=== PATIENT | female | born 1940 | race Caucasian/White ===

== ENCOUNTER 2016-12-25 12:22 | Observation (INO) | payer OTHER ==
[2016-12-25] VITALS (7 sets, daily range): BP systolic 115–138; BP diastolic 60–78; PULSE 78–102; RESP 18–20; TEMP 97.8–98.1; O2SAT 96–99
[~2016-12-25] VITALS: Ht 162.6 cm; Wt 88.0 kg
[~2016-12-25 12:22] MED LIST: ACET325T11 PO; BACT800T5 PO; DIAZ5 PO; FURO20 PO; METF500 PO; NATE120T PO; OMEP20TA39 PO; POTA-267 PO; TEMA15 PO; ZOLO50TA PO
[2016-12-25] MEDS: SODIUM CHLORIDE 0.9% FLUSH 10 ML FLUSH IVF PRN ×2 (12:40→15:51)
--- NOTE | 2016-12-25 12:50 | PD ---
HPI Chief Complaint: General Weakness Time Seen by Provider: 12:45 Travel History International Travel<30 days: No Contact w/Intl Traveler<30days: No Traveled to known affect area: No History of Present Illness HPI 76-year-old female presents to the emergency department for evaluation of generalized weakness. Patient wishes discharged yesterday from [facility]. Apparently, she was admitted on December 14, 2016. The patient has discharge instructions for abdominal pain, questionable pancreatic mass. The patient states she fell before going to [facility], but has not fallen since. She reports chronic shortness of breath. She has chronic lung disease and is on oxygen at home. She reports chronic back pain and her morphine pump is without. She was given a prescription for morphine from [facility], but has not yet filled her prescriptions. The patient denies any fevers since being out at [facility]. The patient denies any chest pain. No abdominal pain. She states she is on a clear liquid diet. According to EMS , when the patient went home via taxi from the other hospital, her was found on the floor and was admitted last night. The patient states she is worried about her and that is why she wanted to come to this hospital. PFSH Past Medical History Arthritis: Yes Asthma: No Autoimmune Disease: No Blood Disorders: No Anxiety: Yes Depression: No Heart Rhythm Problems: No Cancer: Yes (UTERINE 1975) Cardiovascular Problems: Yes High Cholesterol: Yes Chemotherapy: Yes Chest Pain: No Congestive Heart Failure: No COPD: Yes Diabetes: Yes Endocrine: Yes Gastrointestinal Disorders: Yes GERD: Yes Genitourinary: Yes Hypertension: Yes Immune Disorder: No Implanted Vascular Access Dvce: Yes Musculoskeletal: Yes Neurologic: Yes Psychiatric: Yes Reproductive: No Respiratory: Yes Integumentary: Yes (mrsa from back wound) Radiation Therapy: Yes Seizures: Yes (POSSIBLE SEIZURE TWITCHING OF FACE HANDS.) Sleep Apnea: No ?: Not Past Surgical History Abdominal Surgery: Yes (APPENDECTOMY 1973) Appendectomy: Yes (1973) Body Medical Devices: PAIN PUMP RIGHT UPPER ABDOMEN Gynecologic Surgery: Yes (hysterectomy) Hysterectomy: Yes Oral Surgery: Yes (WISDOM TEETH) Other Surgery: Yes Social History Alcohol Use: No Tobacco Use: No Substance Use: No Allergies-Medications (Allergen,Severity, Reaction): Coded Allergies: *MDRO Multi-Drug Resistant Organism (Verified Allergy, Unknown, 12/25/16) MRSA Nonsteroidal Anti-Inflammatory Agts (Verified Allergy, Unknown, BEXTRA AND VIOXX (D/C'D FROM MARKET), 12/25/16) Reported Meds & Prescriptions Reported Meds & Active Scripts Active Reported Valium (Diazepam) 5 Mg Tab 5 Mg PO TID PRN Omeprazole 20 Mg Tab 20 Mg PO DAILY Sertraline (Sertraline HCl) 50 Mg Tab 50 Mg PO DAILY Restoril (Temazepam) 15 Mg Cap 15 Mg PO HS PRN Gabapentin 800 Mg Tab 800 Mg PO TID Glimepiride 2 Mg Tab 2 Mg PO DAILY Take with breakfast or first main meal Vesicare (Solifenacin) 10 Mg Tab 10 Mg PO DAILY Advair Diskus Inh (Fluticasone-Salmeterol Inh) 250-50 Mcg/Blist Aer 1 Puff INH BID Rinse mouth after use. Nystop Topical (Nystatin Topical) 100,000 Unit/Gm Powd 1 Applic TOPICAL BID Review of Systems Except as stated in HPI: all other systems reviewed are Neg Physical Exam Narrative GENERAL: Well-nourished, well-developed female patient, afebrile. SKIN: Focused skin assessment warm/dry. Patient has ecchymosis to bilateral arms from previous IVs. Stage 2 decubitus ulcer. HEAD: Normocephalic. Atraumatic. EYES: No scleral icterus. No injection or drainage. NECK: Supple, trachea midline. No JVD or lymphadenopathy. CARDIOVASCULAR: Regular rate and rhythm without murmurs, gallops, or rubs. RESPIRATORY: Breath sounds equal bilaterally. No accessory muscle use. Lungs sounds are clear to auscultation. GASTROINTESTINAL: Abdomen soft, non-tender, nondistended. No abdominal pain to palpation. MUSCULOSKELETAL: No cyanosis, or edema. Patient reports chronic pain and right lower extremity and has slight weakness due to this. Otherwise, extremity strength is 5/5 and neurovascularly intact. BACK: Nontender without obvious deformity. No CVA tenderness. Data Data Last Documented VS Vital Signs Date Time Temp Pulse Resp B/P Pulse Ox O2 Delivery O2 Flow Rate FiO2 12/25/16 15:43 97.8 97 18 138/78 98 Nasal Cannula 2 Orders Electrocardiogram (12/25/16 12:42) Complete Blood Count With Diff (12/25/16 12:42) Comprehensive Metabolic Panel (12/25/16 12:42) Magnesium (Mg) (12/25/16 12:42) B-Type Natriuretic Peptide (12/25/16 12:42) Ckmb (Isoenzyme) Profile (12/25/16 12:42) Troponin I (12/25/16 12:42) Urinalysis - C+S If Indicated (12/25/16 12:42) Chest, Single Ap (12/25/16 12:42) Ecg Monitoring (12/25/16 12:42) Iv Access Insert/Monitor (12/25/16 12:42) Oximetry (12/25/16 12:42) Sodium Chloride 0.9% Flush (Ns Flush) (12/25/16 12:45) Cath For Specimen (12/25/16 12:42) Lipase (12/25/16 12:51) Urine Culture (12/25/16 12:52) CKMB (12/25/16 12:52) CKMB% (12/25/16 12:52) Sodium Chlorid 0.9% 500 Ml Inj (Ns 500 M (12/25/16 15:00) Ceftriaxone Inj (Rocephin Inj) (12/25/16 15:00) Diet Diabetic (12/25/16 Dinner) Admit Order (Ed Use Only) (12/25/16 15:55) Labs Laboratory Tests Test 12/25/16 12:52 White Blood Count 11.8 TH/MM3 Red Blood Count 5.55 MIL/MM3 Hemoglobin 14.3 GM/DL Hematocrit 44.9 % Mean Corpuscular Volume 80.9 FL Mean Corpuscular Hemoglobin 25.8 PG Mean Corpuscular Hemoglobin 31.9 % Concent Red Cell Distribution Width 18.4 % Platelet Count 261 TH/MM3 Mean Platelet Volume 9.1 FL Neutrophils (%) (Auto) 79.0 % Lymphocytes (%) (Auto) 11.3 % Monocytes (%) (Auto) 8.4 % Eosinophils (%) (Auto) 0.5 % Basophils (%) (Auto) 0.8 % Neutrophils # (Auto) 9.4 TH/MM3 Lymphocytes # (Auto) 1.3 TH/MM3 Monocytes # (Auto) 1.0 TH/MM3 Eosinophils # (Auto) 0.1 TH/MM3 Basophils # (Auto) 0.1 TH/MM3 CBC Comment DIFF FINAL Differential Comment Urine Color DARK-BROWN Urine Turbidity HAZY Urine pH 5.5 Urine Specific [place] 1.029 Urine Protein 30 mg/dL Urine Glucose (UA) NEG mg/dL Urine Ketones NEG mg/dL Urine Occult Blood LARGE Urine Nitrite NEG Urine Bilirubin SMALL Urine Urobilinogen 4.0 MG/DL Urine Leukocyte Esterase MOD Urine RBC /hpf Urine WBC 22 /hpf Urine WBC Clumps FEW Urine Squamous Epithelial 1 /hpf Cells Urine Amorphous Sediment RARE Urine Bacteria RARE /hpf Urine Hyaline Casts 22 /lpf Urine Mucus FEW /lpf Urine Yeast (Budding) FEW Microscopic Urinalysis Comment CATH-CULTURE IND Sodium Level 141 MEQ/L Potassium Level 4.2 MEQ/L Chloride Level 103 MEQ/L Carbon Dioxide Level 25.3 MEQ/L Anion Gap 13 MEQ/L Blood Urea Nitrogen 21 MG/DL Creatinine 1.37 MG/DL Estimat Glomerular Filtration 38 ML/MIN Rate Random Glucose 123 MG/DL Calcium Level 9.8 MG/DL Magnesium Level 1.6 MG/DL Total Bilirubin 1.4 MG/DL Aspartate Amino Transf 43 U/L (AST/SGOT) Alanine Aminotransferase 52 U/L (ALT/SGPT) Alkaline Phosphatase 127 U/L Total Creatine Kinase 105 U/L Creatine Kinase MB 2.2 NG/ML Troponin I LESS THAN 0.02 NG/ML B-Type Natriuretic Peptide 71 PG/ML Total Protein 8.9 GM/DL Albumin 3.6 GM/DL Lipase 111 U/L [facility] Medical Decision Making Medical Screen Exam Complete: Yes Emergency Medical Condition: Yes Medical Record Reviewed: Yes Interpretation(s) chest x-ray - CONCLUSION: Bibasilar streakiness consistent with atelectasis and/or scarring. Clinical correlation is recommended. Differential Diagnosis Electrolyte abnormality versus urinary tract infection versus dehydration Narrative Course 76-year-old female presents to the emergency department for evaluation of generalized weakness. She was discharged from [facility] yesterday. We will attempt to receive these records. EKG, CBC, CMP, CK, troponin, magnesium, BNP, UA are ordered and pending. Chest x-ray is ordered and pending. EKG shows sinus tachycardia, heart rate 101. CBC shows leukocytosis of 11.8. CMP shows BUN 21, creatinine 1.37, glucose 123, bilirubin 1.4, AST 43, alkaline phosphatase 127. CK is 105. Troponin is less than 0.02. Magnesium is 1.6. BNP is 71. Lipase is 111. UA shows large occult blood, 4.0 urobilinogen, moderate leukocyte esterase, 22 WBC, few wbc clumps. Chest x-ray shows Bibasilar streakiness consistent with atelectasis and/or scarring. I reviewed paperwork from previous admission at [facility]. Patient is given normal saline 500 mL bolus and Rocephin 1 g IV. I discussed the case with my attending physician, Dr. Erickson, who also examined the patient. She believes the patient would benefit from placement at rehabilitation or care home facility. The patient agrees with this. Case management is consulted. Case management is attempting to get patient to call discharged comfortable will not know until tomorrow. The patient was brought in under 23 hour observation for UTI. [facility] is paged for admission. Dr. Leavitt accepted patient. Diagnosis Primary Impression: Urinary tract infection Qualified Code: N30.01 - Acute cystitis with hematuria Additional Impression: Generalized weakness Admitting Information Admitting Physician Requests: Observation Amber Rivera December 25, 2016 12:50
[2016-12-25 13:23] LABS: AUTOMATED NEUTROPHIL # 9.4 TH/MM3 (1.8-7.7); BASOPHIL # 0.1 TH/MM3 (0-0.2); BASOPHIL % 0.8 % (0.0-2.0); EOSINOPHIL # 0.1 TH/MM3 (0-0.4); EOSINOPHIL % 0.5 % (0.0-4.0); HEMATOCRIT 44.9 % (35.0-46.0); HEMO FLAGS DIFF FINAL; LYMPH % 11.3 % (9.0-44.0); LYMPHOCYTE # 1.3 TH/MM3 (1.0-4.8); MEAN CELL VOLUME 80.9 FL (80.0-100.0); MEAN CORPUSCULAR HEMOGLOBIN 25.8 PG (27.0-34.0); MEAN CORPUSCULAR HGB CONC 31.9 % (32.0-36.0); MONO % 8.4 % (0.0-8.0); PLATELET COUNT 261 TH/MM3 (150-450); RED BLOOD COUNT 5.55 MIL/MM3 (4.00-5.30); RED CELL DISTRIBUTION WIDTH 18.4 % (11.6-17.2); WHITE BLOOD COUNT 11.8 TH/MM3 (4.0-11.0)
[2016-12-25 13:35] LABS: BACTERIA, URINE RARE /hpf; BLOOD, URINE LARGE (NEG); GLUCOSE,URINE NEG (NEG); HYALINE CAST, URINE 22 /lpf (RARE); KETONE, URINE NEG (NEG); MUCUS URINE FEW /lpf (OCC); NITRITE,URINE NEG (NEG); PH, URINE 5.5 (5.0-8.5); SQUAMOUS EPITHELIAL CELL URINE 1 /hpf (0-5)
[2016-12-25 13:37] LABS: URINE COLOR DARK-BROWN (YELLW/STRAW)
[2016-12-25 13:38] LABS: COMMENT (UR) CATH-CULTURE IND; CULTURE IF INDICATED CATH CULTURE IND
[2016-12-25 13:50] LABS: ANION GAP 13 MEQ/L (5-15); AST (GOT) 43 U/L (15-37); BICARBONATE 25.3 MEQ/L (21.0-32.0); BLOOD UREA NITROGEN 21 MG/DL (7-18); CHLORIDE 103 MEQ/L (98-107); GLOMERULAR FILTRATION RATE 38 ML/MIN (>89); MAGNESIUM 1.6 MG/DL (1.5-2.5); SODIUM (NA) 141 MEQ/L (136-145)
[2016-12-25 13:51] LABS: POTASSIUM 4.2 MEQ/L (3.5-5.1)
[2016-12-25 13:52] LABS: ALKALINE PHOSPHATASE 127 U/L (45-117); ALT (GPT) 52 U/L (10-53); CREATINE KINASE 105 U/L (26-192); TOTAL BILIRUBIN ADULT 1.4 MG/DL (0.2-1.0)
--- NOTE | 2016-12-25 13:53 | RADRPT ---
EXAM DATE/TIME: 12/25/2016 13:04 [place] COMPARISON: CHEST SINGLE AP, March 12, 2016, 11:40. INDICATIONS : Short of breath and cough. Pt. also c/o weakness. MEDICAL HISTORY : Seizures. Hypertension. Diabetes, uterine cancer SURGICAL HISTORY : None. ENCOUNTER: Initial ACUITY: 1 day PAIN SCORE: 0/10 LOCATION: Bilateral chest FINDINGS: Minimal bibasilar streakiness is noted consistent with probable atelectasis ans/or scarring. The hea rt is stable. There is no acute focal alveolar consolidation. No pulmonary edema is noted. CONCLUSION: Bibasilar streakiness consistent with atelectasis and/or scarring. Clinical correlation is recommend ed. Dre Luz MD on December 25, 2016 at 13:45 Board Certified Radiologist. This report was verified electronically.
[2016-12-25 14:05] LABS: CKMB 2.2 NG/ML (0.5-3.6)
[2016-12-25] MEDS ORDERED: NYST10007 TOPICAL (14:15)
[2016-12-25] MEDS ORDERED: ADVA250A INH (14:15)
[2016-12-25] MEDS ORDERED: VESI10TA PO (14:15)
[2016-12-25] MEDS ORDERED: GLIM2TAB PO (14:20)
[2016-12-25] MEDS ORDERED: GABA800T PO (14:20)
[2016-12-25] MEDS ORDERED: SERT-132 PO (14:23)
[2016-12-25] MEDS ORDERED: REST15CA PO (14:23)
[2016-12-25] MEDS ORDERED: DIAZ5 PO (14:23)
[2016-12-25] MEDS ORDERED: OMEP20TA PO (14:23)
[2016-12-25] MEDS ORDERED: cefTRIAXone INJ 1,000 MG in SODIUM CHLORIDE 0.9% INJ 100 ML IV ONE (15:00)
[2016-12-25] MEDS ORDERED: SODIUM CHLORID 0.9% 500 ML INJ 500 ML IV ONE ×2 (15:00→16:15)
--- NOTE | 2016-12-25 15:38 | PD ---
Data Data Last Documented VS Vital Signs Date Time Temp Pulse Resp B/P Pulse Ox O2 Delivery O2 Flow Rate FiO2 12/25/16 14:30 98.0 90 20 115/60 98 Nasal Cannula 2 Orders Electrocardiogram (12/25/16 12:42) Complete Blood Count With Diff (12/25/16 12:42) Comprehensive Metabolic Panel (12/25/16 12:42) Magnesium (Mg) (12/25/16 12:42) B-Type Natriuretic Peptide (12/25/16 12:42) Ckmb (Isoenzyme) Profile (12/25/16 12:42) Troponin I (12/25/16 12:42) Urinalysis - C+S If Indicated (12/25/16 12:42) Chest, Single Ap (12/25/16 12:42) Ecg Monitoring (12/25/16 12:42) Iv Access Insert/Monitor (12/25/16 12:42) Oximetry (12/25/16 12:42) Sodium Chloride 0.9% Flush (Ns Flush) (12/25/16 12:45) Cath For Specimen (12/25/16 12:42) Lipase (12/25/16 12:51) Urine Culture (12/25/16 12:52) CKMB (12/25/16 12:52) CKMB% (12/25/16 12:52) Sodium Chlorid 0.9% 500 Ml Inj (Ns 500 M (12/25/16 15:00) Ceftriaxone Inj (Rocephin Inj) (12/25/16 15:00) Diet Diabetic (12/25/16 Dinner) Labs Laboratory Tests Test 12/25/16 12:52 White Blood Count 11.8 TH/MM3 Red Blood Count 5.55 MIL/MM3 Hemoglobin 14.3 GM/DL Hematocrit 44.9 % Mean Corpuscular Volume 80.9 FL Mean Corpuscular Hemoglobin 25.8 PG Mean Corpuscular Hemoglobin 31.9 % Concent Red Cell Distribution Width 18.4 % Platelet Count 261 TH/MM3 Mean Platelet Volume 9.1 FL Neutrophils (%) (Auto) 79.0 % Lymphocytes (%) (Auto) 11.3 % Monocytes (%) (Auto) 8.4 % Eosinophils (%) (Auto) 0.5 % Basophils (%) (Auto) 0.8 % Neutrophils # (Auto) 9.4 TH/MM3 Lymphocytes # (Auto) 1.3 TH/MM3 Monocytes # (Auto) 1.0 TH/MM3 Eosinophils # (Auto) 0.1 TH/MM3 Basophils # (Auto) 0.1 TH/MM3 CBC Comment DIFF FINAL Differential Comment Urine Color DARK-BROWN Urine Turbidity HAZY Urine pH 5.5 Urine Specific [place] 1.029 Urine Protein 30 mg/dL Urine Glucose (UA) NEG mg/dL Urine Ketones NEG mg/dL Urine Occult Blood LARGE Urine Nitrite NEG Urine Bilirubin SMALL Urine Urobilinogen 4.0 MG/DL Urine Leukocyte Esterase MOD Urine RBC /hpf Urine WBC 22 /hpf Urine WBC Clumps FEW Urine Squamous Epithelial 1 /hpf Cells Urine Amorphous Sediment RARE Urine Bacteria RARE /hpf Urine Hyaline Casts 22 /lpf Urine Mucus FEW /lpf Urine Yeast (Budding) FEW Microscopic Urinalysis Comment CATH-CULTURE IND Sodium Level 141 MEQ/L Potassium Level 4.2 MEQ/L Chloride Level 103 MEQ/L Carbon Dioxide Level 25.3 MEQ/L Anion Gap 13 MEQ/L Blood Urea Nitrogen 21 MG/DL Creatinine 1.37 MG/DL Estimat Glomerular Filtration 38 ML/MIN Rate Random Glucose 123 MG/DL Calcium Level 9.8 MG/DL Magnesium Level 1.6 MG/DL Total Bilirubin 1.4 MG/DL Aspartate Amino Transf 43 U/L (AST/SGOT) Alanine Aminotransferase 52 U/L (ALT/SGPT) Alkaline Phosphatase 127 U/L Total Creatine Kinase 105 U/L Creatine Kinase MB 2.2 NG/ML Troponin I LESS THAN 0.02 NG/ML B-Type Natriuretic Peptide 71 PG/ML Total Protein 8.9 GM/DL Albumin 3.6 GM/DL Lipase 111 U/L MDM Supervised Visit with CARLOS: Yes Narrative Course The history, exam, and medical decision-making in the associated midlevel provider note were completed with my assistance. I reviewed and agree with the findings presented. I attest that I had a [id number] encounter with the patient on the same day, and personally performed and documented my assessment and findings in the medical record. *My assessment and Findings: This is a 76-year-old female who presents to the emergency department with generalized weakness. She was just discharged from [facility] yesterday after a two-week stay having been treated for pneumonia, worked up for a possible pancreatic mass, and had her morphine pump refilled. She went home and found her on the floor who was subsequently hospitalized for sepsis. She says she is living alone, is unsteady on her feet, and hasn't been feeling well since she returned home. She says she was being evaluated to be placed in a rehabilitation center upon discharge from [facility] but doesn't know what happened. Labs demonstrate a mild leukocytosis and a urinary tract infection. Patient will be placed on antibiotics and admitted for placement. I don't think she can safely be discharged home. In addition to her urinary tract infection she has a sacral decubitus ulcer indicating that she is likely not very mobile and she appears quite debilitated. Diagnosis Primary Impression: Urinary tract infection Qualified Code: N30.01 - Acute cystitis with hematuria Additional Impression: Generalized weakness Jacqui Erickson MD December 25, 2016 15:38
[2016-12-25] MEDS ORDERED: TEMAZEPAM 15 MG CAP PO PRN (16:15)
[2016-12-25] MEDS ORDERED: DEXTROSE 50% IN WATER 50 ML VIAL(D50) IV PUSH PRN (16:15)
[2016-12-25] MEDS ORDERED: GLUCAGON 1 MG/ML VIAL OTHER PRN (16:15)
[2016-12-25] MEDS ORDERED: RESP: ALBUTEROL 1.25 MG/3 ML NEB (PRN) NEB (16:15)
--- NOTE | 2016-12-25 16:22 | HHI.HP ---
[facility] Service [facility] Primary Care Physician Sony Serrano MD Admission Diagnosis UTI, generalized weakness Diagnoses: (1) Urinary tract infection Diagnosis: Principal (2) Generalized weakness Diagnosis: Principal Chief Complaint: generalized weakness Travel History International Travel<30 Days: No Contact w/Intl Traveler <30 Da: No Traveled to Known Affected Are: No History of Present Illness patient is a 76 y/o female who was just recently discharged from the hospital after she was admitted with pneumonia presented back to ER with generalized weakness. she says that she normally walks with a walker and apparently she had a fall recently. she was admitted to [facility] and was treated for pneumonia. 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 she says that when she went home yesterday she felt very weak and was afraid of falling again which made her to come to the ER again. she denies any fever, chills,cough, sob or urinary complaints. she says that when she went home she found her on the floor and now her is hospitalized as well. Review of Systems Constitutional: COMPLAINS OF: Fatigue, DENIES: Fever, Weight loss, Chills, Night Sweats Eyes: DENIES: Blurred vision, Diplopia, Vision loss, Double Vision Ears, nose, mouth, throat: DENIES: Tinnitus, Vertigo, Throat pain, Epistaxis Respiratory: DENIES: Apneas, Cough, Snoring, Wheezing, Hemoptysis, Sputum production, Shortness of breath Cardiovascular: DENIES: Chest pain, Palpitations, Syncope, Dyspnea on Exertion , PND, Lower Extremity Edema, Orthopnea, Claudication Gastrointestinal: DENIES: Abdominal pain, Black stools, Bloody stools, Constipation, Diarrhea, Nausea, Vomiting, Difficulty Swallowing, Anorexia Genitourinary: DENIES: Urinary frequency, Urgency, Hematuria, Dysuria Musculoskeletal: DENIES: Joint pain, Muscle aches, Stiffness, Joint Swelling Integumentary: DENIES: Rash Neurologic: DENIES: Abnormal gait, Headache, Localized weakness, Paresthesias, Seizures, Speech Problems, Tremor, Poor Balance Psychiatric: DENIES: Anxiety, Confusion, Mood changes, Depression, Hallucinations, Agitation, Suicidal Ideation, Homicidal Ideation, Delusions Past Family Social History Past Medical History COPD chronic low back pain uterine and breast cancer Past Surgical History back surgery appendectomy pain pump insertion hysterectomy Reported Medications Valium (Diazepam) 5 Mg Tab 5 Mg PO TID PRN Omeprazole 20 Mg Tab 20 Mg PO DAILY Sertraline (Sertraline HCl) 50 Mg Tab 50 Mg PO DAILY Restoril (Temazepam) 15 Mg Cap 15 Mg PO HS PRN Gabapentin 800 Mg Tab 800 Mg PO TID Glimepiride 2 Mg Tab 2 Mg PO DAILY Take with breakfast or first main meal Vesicare (Solifenacin) 10 Mg Tab 10 Mg PO DAILY Advair Diskus Inh (Fluticasone-Salmeterol Inh) 250-50 Mcg/Blist Aer 1 Puff INH BID Rinse mouth after use. Nystop Topical (Nystatin Topical) 100,000 Unit/Gm Powd 1 Applic TOPICAL BID Allergies: Coded Allergies: *MDRO Multi-Drug Resistant Organism (Verified Allergy, Unknown, 12/25/16) MRSA Nonsteroidal Anti-Inflammatory Agts (Verified Allergy, Unknown, BEXTRA AND VIOXX (D/C'D FROM MARKET), 12/25/16) Active Ordered Medications Current Medications Sodium Chloride 2 ml 2 ml UNSCH PRN IVF FLUSH AFTER USING IV ACCESS Last administered on 12/25/16 15:51; Start 12/25/16 at 12:45 Sodium Chloride 500 ml @ 500 mls/hr BOLUS ONCE IV Last administered on 14:58; Start 12/25/16 at 15:00; Stop 12/25/16 at 15:59; Status DC Ceftriaxone Sodium/Sodium Chloride (Rocephin Inj/NS Inj) 100 ml @ 200 mls/hr ONCE ONCE IV Last administered on 12/25/16 14:58; Start 12/25/16 at 15:00; Stop 12/25/16 at 15:29; Status DC Family History not relevant to this admission. Social History quit smoking long time ago. Physical Exam Vital Signs Vital Signs Date Time Temp Pulse Resp B/P Pulse Ox O2 Delivery O2 Flow Rate FiO2 12/25/16 15:43 97.8 97 18 138/78 98 Nasal Cannula 2 12/25/16 14:30 98.0 90 20 115/60 98 Nasal Cannula 2 12/25/16 12:45 20 98 Nasal Cannula 2 12/25/16 12:40 101 20 98 Nasal Cannula 2 12/25/16 12:29 98.1 102 20 118/78 99 Physical Exam GENERAL: This is a well-nourished, well-developed patient, in no apparent distress. SKIN: No rashes, ecchymoses or lesions. Cool and dry. HEAD: Atraumatic. Normocephalic. No temporal or scalp tenderness. EYES: Pupils equal round and reactive. Extraocular motions intact. No scleral icterus. No injection or drainage. ENT: Nose without bleeding, purulent drainage or septal hematoma. Throat without erythema, tonsillar hypertrophy or exudate. Uvula midline. Airway patent. NECK: Trachea midline. No JVD or lymphadenopathy. Supple, nontender, no meningeal signs. CARDIOVASCULAR: Regular rate and rhythm without murmurs, gallops, or rubs. RESPIRATORY: Clear to auscultation. Breath sounds equal bilaterally. No wheezes , rales, or rhonchi. GASTROINTESTINAL: Abdomen soft, non-tender, nondistended. No hepato-splenomegaly , or palpable masses. No guarding. MUSCULOSKELETAL: Extremities with mild bilateral pedal edema. NEUROLOGICAL: Awake and alert. Cranial nerves II through XII intact. Motor and sensory grossly within normal limits. Five out of 5 muscle strength in all muscle groups. Normal speech. Laboratory Laboratory Tests Test 12/25/16 12:52 White Blood Count 11.8 Red Blood Count 5.55 Hemoglobin 14.3 Hematocrit 44.9 Mean Corpuscular Volume 80.9 Mean Corpuscular Hemoglobin 25.8 Mean Corpuscular Hemoglobin 31.9 Concent Red Cell Distribution Width 18.4 Platelet Count 261 Mean Platelet Volume 9.1 Neutrophils (%) (Auto) 79.0 Lymphocytes (%) (Auto) 11.3 Monocytes (%) (Auto) 8.4 Eosinophils (%) (Auto) 0.5 Basophils (%) (Auto) 0.8 Neutrophils # (Auto) 9.4 Lymphocytes # (Auto) 1.3 Monocytes # (Auto) 1.0 Eosinophils # (Auto) 0.1 Basophils # (Auto) 0.1 CBC Comment DIFF FINAL Differential Comment Urine Color DARK-BROWN Urine Turbidity HAZY Urine pH 5.5 Urine Specific [place] 1.029 Urine Protein 30 Urine Glucose (UA) NEG Urine Ketones NEG Urine Occult Blood LARGE Urine Nitrite NEG Urine Bilirubin SMALL Urine Urobilinogen 4.0 Urine Leukocyte Esterase MOD Urine RBC Urine WBC 22 Urine WBC Clumps FEW Urine Squamous Epithelial 1 Cells Urine Amorphous Sediment RARE Urine Bacteria RARE Urine Hyaline Casts 22 Urine Mucus FEW Urine Yeast (Budding) FEW Microscopic Urinalysis Comment CATH-CULTURE IND Sodium Level 141 Potassium Level 4.2 Chloride Level 103 Carbon Dioxide Level 25.3 Anion Gap 13 Blood Urea Nitrogen 21 Creatinine 1.37 Estimat Glomerular Filtration 38 Rate Random Glucose 123 Calcium Level 9.8 Magnesium Level 1.6 Total Bilirubin 1.4 Aspartate Amino Transf 43 (AST/SGOT) Alanine Aminotransferase 52 (ALT/SGPT) Alkaline Phosphatase 127 Total Creatine Kinase 105 Creatine Kinase MB 2.2 Troponin I LESS THAN 0.02 B-Type Natriuretic Peptide 71 Total Protein 8.9 Albumin 3.6 Lipase 111 Date/Time Procedure Status Source Growth 12/25/16 12:52 Urine Culture Received Urine Catheterized Urine Pending Result Diagram: 12/25/16 1252 12/25/16 1252 Imaging Last Impressions Chest X-Ray 12/25/16 1242 Signed Impressions: Service Date/Time: Sunday, December 25, 2016 13:04 - CONCLUSION: Bibasilar streakiness consistent with atelectasis and/or scarring. Clinical correlation is recommended. Dre Luz MD EKG; sinus tachycardia Assessment and Plan Assessment and Plan A/P - generalized weakness- with history of recent hospitalization consult PT and case management -UTI- continue antibiotic- follow the UC -acute kidney injury; IV hydration- BMP in am -diabetes mellitus; accu-check with SSI -COPD with no exacerbation; neb treatment as needed.patient is on home oxygen -chronic back pain; continue pain control -history of breast and uterine cancer- f/u as outpatient -DVT prophylaxis with SCD's Discussed Condition With ER physician and the patient. Problem Qualifiers (1) Urinary tract infection: Qualified Code: N30.01 - Acute cystitis with hematuria Mili De Jesus MD December 25, 2016 16:21
[2016-12-25] MEDS: GABAPENTIN 400 MG CAP PO SCH (17:24)
[2016-12-25] MEDS: INSULIN ASPART SUPPLEMENTAL SCALE SQ SCH (21:00)
[2016-12-25] MEDS: BUDESONIDE-FORMOTEROL 160/4.5 MCG INHALER INH SCH (22:17)
[2016-12-26] VITALS (8 sets, daily range): BP systolic 126–156; BP diastolic 66–86; PULSE 67–97; RESP 17–20; TEMP 96.3–98.6; O2SAT 90–95
[2016-12-26] MEDS: DIAZEPAM 5 MG TAB PO PRN ×2 (02:07→17:09)
[2016-12-26 06:04] LABS: BICARBONATE 25.3 MEQ/L (21.0-32.0); POTASSIUM 3.3 MEQ/L (3.5-5.1)
[2016-12-26] MEDS: INSULIN ASPART SUPPLEMENTAL SCALE SQ SCH ×4 (07:00→21:00)
--- NOTE | 2016-12-26 07:41 | HHI.PR ---
Subjective Remarks feels much better today. no new complaints. says that slept well last night. no fever. d/w the RN. Objective Vitals Vital Signs Date Time Temp Pulse Resp B/P Pulse Ox O2 Delivery O2 Flow Rate FiO2 12/26/16 04:04 97.8 91 18 126/74 94 12/26/16 00:11 98.4 87 18 148/76 93 12/25/16 19:26 97 Nasal Cannula 2.00 12/25/16 17:20 98.0 98 20 131/72 98 Nasal Cannula 3 12/25/16 17:04 96 Nasal Cannula 2.00 12/25/16 15:43 97.8 97 18 138/78 98 Nasal Cannula 2 12/25/16 14:30 98.0 90 20 115/60 98 Nasal Cannula 2 12/25/16 12:45 20 98 Nasal Cannula 2 12/25/16 12:40 101 20 98 Nasal Cannula 2 12/25/16 12:29 98.1 102 20 118/78 99 I/O 12/25/16 12/25/16 12/25/16 12/26/16 12/26/16 12/26/16 07:00 15:00 23:00 07:00 15:00 23:00 Intake Total 500 ml Balance 500 ml Intake Oral 500 ml # Voids 1 # Bowel Movements 0 Result Diagram: 12/25/16 1252 12/26/16 0438 Imaging Last Impressions Chest X-Ray 12/25/16 1242 Signed Impressions: Service Date/Time: Sunday, December 25, 2016 13:04 - CONCLUSION: Bibasilar streakiness consistent with atelectasis and/or scarring. Clinical correlation is recommended. rDe Luz MD Objective Remarks GENERAL: This is a well-nourished, well-developed patient, in no apparent distress. CARDIOVASCULAR: Regular rate and regular rhythm without murmurs, gallops, or rubs. RESPIRATORY: Clear to auscultation. Breath sounds equal bilaterally. No wheezes , rales, or rhonchi. GASTROINTESTINAL: Abdomen soft, non-tender, nondistended. Normal, active bowel sounds MUSCULOSKELETAL: Extremities without clubbing, cyanosis, or edema. NEURO: Alert & Oriented x4 to person, place, time, situation. Moves all ext x4 Procedures none Medications and IVs Current Medications Sodium Chloride 2 ml 2 ml UNSCH PRN IVF FLUSH AFTER USING IV ACCESS Last administered on 12/25/16 15:51; Start 12/25/16 at 12:45 Sodium Chloride 500 ml @ 500 mls/hr BOLUS ONCE IV Last administered on 14:58; Start 12/25/16 at 15:00; Stop 12/25/16 at 15:59; Status DC Ceftriaxone Sodium/Sodium Chloride (Rocephin Inj/NS Inj) 100 ml @ 200 mls/hr ONCE ONCE IV Last administered on 12/25/16 14:58; Start 12/25/16 at 15:00; Stop 12/25/16 at 15:29; Status DC Diazepam (Valium) 5 mg TID PRN PO MUSCLE SPASM Last administered on 12/26/16 02 :07; Start 12/25/16 at 16:15 Gabapentin (Neurontin) 800 mg TID PO Last administered on 12/25/16 17:24; Start 12/25/16 at 18:00 Sertraline HCl (Zoloft) 50 mg DAILY PO ; Start 12/26/16 at 09:00 Temazepam (Restoril) 15 mg HS PRN PO INSOMNIA; Start 12/25/16 at 16:15 Budesonide/ Formoterol Fumarate (Symbicort 160-4.5 Inh) 2 puff BID INH Last administered on 12/25/16 22:17; Start 12/25/16 at 21:00 Pantoprazole Sodium (Protonix) 20 mg DAILY PO ; Start 12/26/16 at 09:00 Tolterodine Tartrate (Detrol La) 4 mg DAILY PO ; Start 12/26/16 at 09:00 Dextrose (D50w (Vial) Inj) 25 ml UNSCH PRN IV PUSH HYPOGLYCEMIA-SEE COMMENTS; Start 12/25/16 at 16:15 Glucagon (Glucagon Inj) 1 mg UNSCH PRN OTHER HYPOGLYCEMIA-SEE COMMENTS; Start 12/25/16 at 16:15 Insulin Aspart 1 1 ACHS SLIDING SCALE SQ ; Start 12/25/16 at 21:00 Ceftriaxone Sodium/Sodium Chloride (Rocephin Inj/NS Inj) 100 ml @ 200 mls/hr Q24H IV ; Start 12/26/16 at 15:00 Albuterol Sulfate 1.25 mg 1.25 mg Q6HR NEB PRN NEB SHORTNESS OF BREATH; Start 12/25/16 at 16:15 Sodium Chloride (NS 500 ml Inj) 500 ml @ 50 mls/hr Q10H ONCE IV Last administered on 12/25/16t 16:45; Start 12/25/16 at 16:15; Stop 12/26/16 at 02:14; Status DC A/P Assessment and Plan A/P - generalized weakness- with history of recent hospitalization consulted PT and case management -UTI- continue antibiotic- follow the UC -acute kidney injury;resolved- -mild hypokalemia; will replace. -diabetes mellitus; accu-check with SSI -COPD with no exacerbation; neb treatment as needed.patient is on home oxygen -chronic back pain; continue pain control -history of breast and uterine cancer- f/u as outpatient -DVT prophylaxis with SCD's Discharge Planning likely discharge today- home vs rehab- pending PT evaluation. f/u with pcp upon dischrage. d/w the patient and RN. Mili De Jesus MD December 26, 2016 07:41
[2016-12-26] MEDS ORDERED: DIAZ5 PO (07:43)
[2016-12-26] MEDS ORDERED: CIPR250T52 PO (07:43)
--- NOTE | 2016-12-26 07:43 | HHI.DCPOC ---
Discharge Care Plan Diagnosis: (1) Generalized weakness Your Health Problems Are: Difficulty with ADL Exercise Tolerance Goals to Promote Your Health * To prevent worsening of your condition and complications * To maintain your health at the optimal level Directions to Meet Your Goals Take your medications as prescribed Follow your dietary instruction Follow activity as directed Keep your appointments as scheduled Take your immunizations and boosters as scheduled If your symptoms worsen call your PCP, if no PCP go to Urgent Care Center or Emergency Room Smoking is Dangerous to Your Health. Avoid second hand smoke Call the 24-hour hour crisis hotline for domestic abuse at Mili De Jesus MD December 26, 2016 07:43
[2016-12-26] MEDS ORDERED: POTASSIUM CHLORIDE 10 MEQ CONTROLLED RELEASE TAB PO ONE (07:45)
[2016-12-26] MEDS: PANTOPRAZOLE SOD 20 MG DELAYED RELEASE TAB PO SCH (08:39)
[2016-12-26] MEDS: TOLTERODINE TARTRATE 4 MG CAP LA PO SCH (08:39)
[2016-12-26] MEDS: SERTRALINE HCL 50 MG TAB PO SCH (08:39)
[2016-12-26] MEDS: GABAPENTIN 400 MG CAP PO SCH ×3 (08:39→17:09)
[2016-12-26] MEDS: BUDESONIDE-FORMOTEROL 160/4.5 MCG INHALER INH SCH ×2 (08:42→20:59)
--- NOTE | 2016-12-26 09:30 | EKG ---
Date Performed: 12/25/2016 Time Performed: 13:09:08 PTAGE: 76 years EKG: SINUS TACHYCARDIA MARKED LEFT AXIS DEVIATION ABNORMAL ECG PREVIOUS TRACING : 03/12/2016 11.08 DOCTOR: Roni Snyder Interpretating Date/Time 12/26/2016 09:29:12
--- NOTE | 2016-12-26 12:38 | HHI.FF ---
Face to Face Verification Diagnosis: (1) Generalized weakness Physical Therapy Order: Evaluate and Treat I have seen patient Jada Tadeo on 12/26/16. My clinical findings support the need for the requested home health care services because: Ltd mobility - disease progression I certify that my clinical findings support that this patient is homebound because: Unsteady gait/balance Mili De Jesus MD December 26, 2016 12:38
[2016-12-26] MEDS ORDERED: DIFL100T PO (13:07)
[2016-12-26] MEDS ORDERED: cefTRIAXone INJ 1,000 MG in SODIUM CHLORIDE 0.9% INJ 100 ML IV SCH (15:00)
[2016-12-26] MEDS ORDERED: ACETAMINOPHEN/HYDROcodone 325 MG/5 MG TAB PO ONE (22:30)
[2016-12-27] MEDS: DIAZEPAM 5 MG TAB PO PRN (01:39)
[2016-12-27 04:00] VITALS: BP 166/80; PULSE 89; RESP 20; TEMP 96.1; O2SAT 91
[2016-12-27] MEDS ORDERED: ACETAMINOPHEN 325 MG TAB PO ONE (04:00)
[2016-12-27] MEDS: INSULIN ASPART SUPPLEMENTAL SCALE SQ SCH (07:00)
--- NOTE | 2016-12-27 07:41 | HHI.PR ---
Subjective Remarks resting comfortably with no distress. no fever. d/w the RN and no acute issues over night. Objective Vitals Vital Signs Date Time Temp Pulse Resp B/P Pulse Ox O2 Delivery O2 Flow Rate FiO2 12/27/16 04:00 96.1 89 20 166/80 91 12/26/16 23:35 96.3 91 20 139/78 95 12/26/16 20:58 98.6 86 18 149/84 90 12/26/16 16:28 98.3 95 20 127/80 94 12/26/16 11:26 96.7 97 20 156/86 93 12/26/16 08:24 98.3 90 20 140/80 90 12/26/16 07:44 Nasal Cannula 2.00 Result Diagram: 12/25/16 1252 12/26/16 0438 Imaging Last Impressions Chest X-Ray 12/25/16 1242 Signed Impressions: Service Date/Time: Sunday, December 25, 2016 13:04 - CONCLUSION: Bibasilar streakiness consistent with atelectasis and/or scarring. Clinical correlation is recommended. Dre Luz MD Objective Remarks GENERAL: This is a well-nourished, well-developed patient, in no apparent distress. CARDIOVASCULAR: Regular rate and regular rhythm without murmurs, gallops, or rubs. RESPIRATORY: Clear to auscultation. Breath sounds equal bilaterally. No wheezes , rales, or rhonchi. GASTROINTESTINAL: Abdomen soft, non-tender, nondistended. Normal, active bowel sounds MUSCULOSKELETAL: Extremities without clubbing, cyanosis, or edema. NEURO: Alert & Oriented x4 to person, place, time, situation. Moves all ext x4 Procedures none Medications and IVs Current Medications Sodium Chloride 2 ml 2 ml UNSCH PRN IVF FLUSH AFTER USING IV ACCESS Last administered on 12/25/16 15:51; Start 12/25/16 at 12:45 Sodium Chloride 500 ml @ 500 mls/hr BOLUS ONCE IV Last administered on 14:58; Start 12/25/16 at 15:00; Stop 12/25/16 at 15:59; Status DC Ceftriaxone Sodium/Sodium Chloride (Rocephin Inj/NS Inj) 100 ml @ 200 mls/hr ONCE ONCE IV Last administered on 12/25/16 14:58; Start 12/25/16 at 15:00; Stop 12/25/16 at 15:29; Status DC Diazepam (Valium) 5 mg TID PRN PO MUSCLE SPASM Last administered on 12/27/16 01 :39; Start 12/25/16 at 16:15 Gabapentin (Neurontin) 800 mg TID PO Last administered on 12/26/16 17:09; Start 12/25/16 at 18:00 Sertraline HCl (Zoloft) 50 mg DAILY PO Last administered on 12/26/16 08:39; Start 12/26/16 at 09:00 Temazepam (Restoril) 15 mg HS PRN PO INSOMNIA; Start 12/25/16 at 16:15 Budesonide/ Formoterol Fumarate (Symbicort 160-4.5 Inh) 2 puff BID INH Last administered on 12/26/16 20:59; Start 12/25/16 at 21:00 Pantoprazole Sodium (Protonix) 20 mg DAILY PO Last administered on 12/26/16 08: 39; Start 12/26/16 at 09:00 Tolterodine Tartrate (Detrol La) 4 mg DAILY PO Last administered on 12/26/16 08 :39; Start 12/26/16 at 09:00 Dextrose (D50w (Vial) Inj) 25 ml UNSCH PRN IV PUSH HYPOGLYCEMIA-SEE COMMENTS; Start 12/25/16 at 16:15 Glucagon (Glucagon Inj) 1 mg UNSCH PRN OTHER HYPOGLYCEMIA-SEE COMMENTS; Start 12/25/16 at 16:15 Insulin Aspart 1 1 ACHS SLIDING SCALE SQ ; Start 12/25/16 at 21:00 Ceftriaxone Sodium/Sodium Chloride (Rocephin Inj/NS Inj) 100 ml @ 200 mls/hr Q24H IV ; Start 12/26/16 at 15:00 Albuterol Sulfate 1.25 mg 1.25 mg Q6HR NEB PRN NEB SHORTNESS OF BREATH; Start 12/25/16 at 16:15 Sodium Chloride (NS 500 ml Inj) 500 ml @ 50 mls/hr Q10H ONCE IV Last administered on 12/25/16 16:45; Start 12/25/16 at 16:15; Stop 12/26/16 at 02:14; Status DC Potassium Chloride (KCl) 30 meq ONCE ONCE PO Last administered on 12/26/16 08: 38; Start 12/26/16 at 07:45; Stop 12/26/16 at 07:47; Status DC Acetaminophen/ Hydrocodone Bitart ([place] 5-325 Mg) 1 tab ONCE ONCE PO Last administered on 12/26/16 22:30; Start 12/26/16 at 22:30; Stop 12/26/16 at 22:31; Status DC Acetaminophen (Tylenol) 650 mg ONCE ONCE PO ; Start 12/27/16 at 04:00; Stop 12/27 at 04:01; Status DC A/P Assessment and Plan A/P - generalized weakness- with history of recent hospitalization consulted PT and case management -UTI- UC with yeast- dc Rocephin and start diflucan -acute kidney injury;resolved- -mild hypokalemia; replaced. -diabetes mellitus; accu-check with SSI -COPD with no exacerbation; neb treatment as needed.patient is on home oxygen -chronic back pain; continue pain control -history of breast and uterine cancer- f/u as outpatient -DVT prophylaxis with SCD's Discharge Planning discharge today- home vs rehab- case management consulted to assist with dc planning. f/u with pcp upon discharge.. d/w the patient and MACHO. Mili De Jesus MD December 27, 2016 07:41
--- NOTE | 2016-12-27 07:41 | HHI.DS ---
Discharge Summary Admission Date December 25, 2016 at 15:56 Discharge Date: December 27, 2016 Admitting Diagnosis UTI, generalized weakness (1) Urinary tract infection ICD Code: N39.0 Diagnosis: Principal (2) Generalized weakness ICD Code: R53.1 Diagnosis: Principal Procedures none Brief History - From Admission patient is a 76 y/o female who was just recently discharged from the hospital after she was admitted with pneumonia presented back to ER with generalized weakness. she says that she normally walks with a walker and apparently she had a fall recently. she was admitted to [facility] and was treated for pneumonia. 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 she says that when she went home yesterday she felt very weak and was afraid of falling again which made her to come to the ER again. she denies any fever, chills,cough, sob or urinary complaints. she says that when she went home she found her on the floor and now her is hospitalized as well. CBC/BMP: 12/25/16 1252 12/26/16 0438 Significant Findings Laboratory Tests Test 12/25/16 12/26/16 12:52 04:38 White Blood Count 11.8 TH/MM3 (4.0-11.0) Red Blood Count 5.55 MIL/MM3 (4.00-5.30) Mean Corpuscular Hemoglobin 25.8 PG (27.0-34.0) Mean Corpuscular Hemoglobin 31.9 % Concent (32.0-36.0) Red Cell Distribution Width 18.4 % (11.6-17.2) Neutrophils (%) (Auto) 79.0 % (16.0-70.0) Monocytes (%) (Auto) 8.4 % (0.0-8.0) Neutrophils # (Auto) 9.4 TH/MM3 (1.8-7.7) Monocytes # (Auto) 1.0 TH/MM3 (0-0.9) Urine Color DARK-BROWN (YELLW/STRAW) Urine Turbidity HAZY (CLEAR) Urine Protein 30 mg/dL (NEG-TRACE) Urine Occult Blood LARGE (NEG) Urine Bilirubin SMALL (NEG) Urine Urobilinogen 4.0 MG/DL (LESS THAN 2.0) Urine Leukocyte Esterase MOD (NEG) Urine WBC 22 /hpf (0-5) Urine WBC Clumps FEW (NONE) Urine Bacteria RARE /hpf (NONE) Urine Mucus FEW /lpf (OCC) Urine Yeast (Budding) FEW (NONE) Blood Urea Nitrogen 21 MG/DL (7-18) Creatinine 1.37 MG/DL (0.50-1.00) Estimat Glomerular Filtration 38 ML/MIN (>89) 86 ML/MIN (>89) Rate Random Glucose 123 MG/DL (74-106) Total Bilirubin 1.4 MG/DL (0.2-1.0) Aspartate Amino Transf 43 U/L (15-37) (AST/SGOT) Alkaline Phosphatase 127 U/L (45-117) Troponin I LESS THAN 0.02 NG/ML (0.02-0.05) Total Protein 8.9 GM/DL (6.4-8.2) Potassium Level 3.3 MEQ/L (3.5-5.1) Chloride Level 108 MEQ/L (98-107) Imaging Last Impressions Chest X-Ray 12/25/16 1242 Signed Impressions: Service Date/Time: Sunday, December 25, 2016 13:04 - CONCLUSION: Bibasilar streakiness consistent with atelectasis and/or scarring. Clinical correlation is recommended. Dre Luz MD PE at Discharge GENERAL: This is a well-nourished, well-developed patient, in no apparent distress. CARDIOVASCULAR: Regular rate and regular rhythm without murmurs, gallops, or rubs. RESPIRATORY: Clear to auscultation. Breath sounds equal bilaterally. No wheezes , rales, or rhonchi. GASTROINTESTINAL: Abdomen soft, non-tender, nondistended. Normal, active bowel sounds MUSCULOSKELETAL: Extremities without clubbing, cyanosis, or edema. NEURO: Alert & Oriented x4 to person, place, time, situation. Moves all ext x4 Hospital Course - generalized weakness- with history of recent hospitalization consulted PT and case management -UTI- UC with yeast- dc Rocephin and start diflucan -acute kidney injury;resolved- -mild hypokalemia; replaced. -diabetes mellitus; accu-check with SSI -COPD with no exacerbation; neb treatment as needed.patient is on home oxygen -chronic back pain; continue pain control -history of breast and uterine cancer- f/u as outpatient -DVT prophylaxis with SCD's Pt Condition on Discharge: Good Discharge Disposition: Disch w/ Home Health Serv Discharge Time: <= 30 minutes Discharge Instructions DIET: Follow Instructions for: Heart Healthy Diet, Diabetic Diet Activities you can perform: Regular-No Restrictions Follow up Referrals: PCP Follow-up New Medications: Fluconazole (Diflucan) 100 Mg Tab 100 MG PO DAILY Infection Days 7 Ref 0 TAB Continued Medications: Fluticasone-Salmeterol Inh (Advair Diskus Inh) 250-50 Mcg/Blist Aer 1 PUFF INH BID Rinse mouth after use. #1 Ref 0 INHALER Gabapentin (Gabapentin) 800 Mg Tab 800 MG PO TID #90 Ref 0 TAB Glimepiride (Glimepiride) 2 Mg Tab 2 MG PO DAILY Take with breakfast or first main meal Blood Sugar Management #30 Ref 0 TAB Nystatin Topical (Nystop Topical) 100,000 Unit/Gm Powd 1 APPLIC TOPICAL BID Ref 0 TUBE Omeprazole (Omeprazole) 20 Mg Tab 20 MG PO DAILY #30 Ref 0 TAB Sertraline (Sertraline) 50 Mg Tab 50 MG PO DAILY #30 Ref 0 TAB Solifenacin (Vesicare) 10 Mg Tab 10 MG PO DAILY Urinary Symptom Managemen #30 Ref 0 TAB Discontinued Medications: Temazepam (Restoril) 15 Mg Cap 15 MG PO HS PRN INSOMNIA #30 Ref 0 CAP Mili De Jesus MD December 27, 2016 07:41
[2016-12-27 08:15] VITALS: BP 147/70; PULSE 90; RESP 21; TEMP 98; O2SAT 93
[2016-12-27] MEDS: BUDESONIDE-FORMOTEROL 160/4.5 MCG INHALER INH SCH (09:00)
[2016-12-27] MEDS: GABAPENTIN 400 MG CAP PO SCH (09:00)
[2016-12-27] MEDS ORDERED: FLUCONAZOLE 100 MG TAB PO SCH (09:00)
[2016-12-27] MEDS: SERTRALINE HCL 50 MG TAB PO SCH (09:00)
[2016-12-27] MEDS: PANTOPRAZOLE SOD 20 MG DELAYED RELEASE TAB PO SCH (09:00)
[2016-12-27] MEDS: TOLTERODINE TARTRATE 4 MG CAP LA PO SCH (09:00)
[2016-12-27 11:54] VITALS: BP 161/87; PULSE 94; RESP 20; TEMP 97.8; O2SAT 93
== END 2016-12-27 12:38 | disposition home or self-care (01) ==
LOC: NEPC 12:22 → NEDA 15:56 → NEPFCDU 18:19
PROVIDERS: ADMIT Internal Medicine; ATTEND Internal Medicine
DX: R53.1 Weakness (principal); B37.49 Other urogenital candidiasis; E11.9 Type 2 diabetes mellitus without complications; N17.9 Acute kidney failure, unspecified; E87.6 Hypokalemia; J44.9 Chronic obstructive pulmonary disease, unspecified; G89.29 Other chronic pain; M54.5 Low back pain; I10 Essential (primary) hypertension; M19.90 Unspecified osteoarthritis, unspecified site; F41.9 Anxiety disorder, unspecified; K21.9 Gastro-esophageal reflux disease without esophagitis; Z85.42 Personal history of malignant neoplasm of other parts of uterus; Z85.3 Personal history of malignant neoplasm of breast; Z79.51 Long term (current) use of inhaled steroids; Z88.8 Allergy status to other drugs, medicaments and biological substances; Z88.6 Allergy status to analgesic agent
CPT/HCPCS: 71010; 80048; 80053; 81001; 82550; 82552; 82948; 83690; 83735; 83880; 84484; 85025; 87086; 87106; 87641; 93005; 96365; 97162; 99285; G0378; G8987; G8988; J0696; J7040; P9612